=== PATIENT | female | born 1965 | race Caucasian/White ===

== ENCOUNTER 2018-04-04 16:36 | Emergency (ER) | payer OTHER ==
[~2018-04-04] VITALS: Ht 154.9 cm; Wt 55.3 kg
[2018-04-04 16:59] VITALS: BP_SYST 158
[2018-04-04 17:37] LABS: BASOPHILS # (AUTO) 0.1 K/uL (0.0-0.2); BASOPHILS % (AUTO) 1.3 % (0.0-2.0); EOSINOPHILS # (AUTO) 0.1 K/uL (0.0-0.4); EOSINOPHILS % (AUTO) 1.8 % (0.0-4.0); HEMATOCRIT 40.6 % (36-48); HEMOGLOBIN 13.6 g/dL (12.0-16.0); LYMPHOCYTES # (AUTO) 2.2 K/uL (1.0-5.5); LYMPHOCYTES % (AUTO) 26.8 % (20.5-51.5); MEAN CORPUSCULAR HEMOGLOBIN 31 pg (27-31); MEAN CORPUSCULAR HGB CONC 34 % (32-36); MEAN CORPUSCULAR VOLUME 93 fL (79.0-98.0); MONOCYTES # (AUTO) 0.5 K/uL (0.0-1.0); MONOCYTES % (AUTO) 6.4 % (1.7-9.3); NEUTROPHILS # (AUTO) 5.3 K/uL (1.8-7.7); NEUTROPHILS % (AUTO) 63.7 % (40.0-70.0); PLATELET COUNT (AUTO) 215 K/uL (130-430); RED BLOOD CELL COUNT(AUTO) 4.34 MIL/uL (4.2-6.2); RED CELL DISTRIBUTION WIDTH 11.6 % (9.0-15.0); WHITE BLOOD COUNT (AUTO) 8.2 K/uL (4.8-10.8)
--- NOTE | 2018-04-04 17:38 | NUR ---
Patient to ER bed 02 to gown for evaluation. Side rails up. Report given to CHAN Haynes
--- NOTE | 2018-04-04 17:38 | NUR ---
Pt c/o intermittent pain beneath border of anterior rib cage x 2 months, constant and stabbing sensation over the past two days. Denies N/V/D.
[2018-04-04 17:43] LABS: BILIRUBIN,URINE NEGATIVE (NEGATIVE); BLOOD, URINE 1+ (NEGATIVE); CLARITY/URINE CLEAR (CLEAR); COLOR,URINE YELLOW (YELLOW); GLUCOSE,URINE NEGATIVE (NEGATIVE); KETONES,URINE NEGATIVE (NEGATIVE); LEUKOCYTE ESTERASE ,URINE 1+ (NEGATIVE); NITRITE, URINE NEGATIVE (NEGATIVE); PH,URINE 6.5 (5.0-8.0); PROTEIN URINE NEGATIVE (NEGATIVE); UROBILINOGEN,URINE 0.2 (0.2-1.0)
[2018-04-04 17:45] LABS: CALCIUM 9.5 mg/dL (8.4-11.0); CREATININE 0.68 mg/dL (0.55-1.30)
--- NOTE | 2018-04-04 17:45 | NUR ---
Dr. Williamson at bedside.
[2018-04-04 17:48] LABS: BACTERIA,URINE MODERATE /HPF (None Seen); RBC,URINE 0-3 /HPF (0-3); URINE AMORPHOUS URATE 1+ /HPF (None Seen)
[2018-04-04 17:50] LABS: ALBUMIN 4.2 g/dL (3.4-4.8); TOTAL BILIRUBIN 0.4 mg/dL (0.0-1.0)
--- NOTE | 2018-04-04 18:45 | NUR ---
No needs verbalized at this time, VSS.
--- NOTE | 2018-04-04 19:15 | NUR ---
Pt report given to night time babysitter.
--- NOTE | 2018-04-04 19:30 | NUR ---
Report received from Thanh GILES to assume care. Pt shows no s/s of distress, pt denies any pain or discomfort at this time. Will continue to monitor.
[2018-04-04 20:15] VITALS: BP_SYST 149
--- NOTE | 2018-04-04 20:15 | NUR ---
Patient given written and verbal discharge instructions and verbalizes understanding. ER MD discussed with patient the results and treatment provided. Patient in stable condition. Rx of Bactrim given. Patient educated on pain management and to follow up with PMD. Pain Scale 0/10. Opportunity for questions provided and answered. Medication side effect fact sheet provided.
== END 2018-04-04 20:15 | disposition home or self-care (01) ==
LOC: SED 16:36
DX: R10.12 Left upper quadrant pain (principal); R03.0 Elevated blood-pressure reading, without diagnosis of hypertension
CPT/HCPCS: 36415; 71046-TC; 80053; 81000-TC; 83690-TC; 85025; 87086; 99285

== ENCOUNTER 2022-05-13 14:34 | Emergency (ER) | payer OTHER ==
[~2022-05-13] VITALS: Ht 162.6 cm; Wt 65.8 kg
[2022-05-13 14:35] VITALS: BP_SYST 121
--- NOTE | 2022-05-13 14:40 | NUR ---
Placed in room 8 . Placed on library monitor, blood pressure machine and pulse oximeter. To gown for exam. Side rails up. Report given to CHAN ROJAS.
--- NOTE | 2022-05-13 14:59 | NUR ---
ER DR. GAMBLE EXAMINING PT AT THE BEDSIDE
[2022-05-13 15:30] VITALS: BP_SYST 121
--- NOTE | 2022-05-13 15:31 | NUR ---
PT WALKED OUT OF ER, REFUSED TO SIGN AMA FORM
== END 2022-05-13 15:30 | disposition left against medical advice (07) ==
LOC: SED 14:34
DX: R19.7 Diarrhea, unspecified (principal); R10.9 Unspecified abdominal pain; Z79.899 Other long term (current) drug therapy
CPT/HCPCS: 99281